=== PATIENT | female | born 1980 | race Caucasian/White ===

== ENCOUNTER 2021-04-28 12:23 | Observation (INO) | payer OTHER, BC ==
[~2021-04-28] VITALS: Ht 165.1 cm; Wt 83.0 kg
--- NOTE | 2021-04-28 12:28 | NUR ---
PATIENT TO ROOM VIA EMS AND PATIENT IS REFUSING C-OLLAR AT THIS TIME. MD NOTIFIED OF PATIENT STATUS
[2021-04-28 13:08] LABS: URINE BILIRUBIN - DIPSTICK NEGATIVE (NEGATIVE); URINE BLOOD DIPSTICK TRACE-INTACT (NEGATIVE); URINE CLARITY CLEAR; URINE COLOR YELLOW; URINE GLUCOSE - DIPSTICK NEGATIVE (NEGATIVE); URINE KETONE NEGATIVE (NEGATIVE); URINE LEUK ESTERASE NEGATIVE (Negative); URINE NITRITE - DIPSTICK NEGATIVE (Negative); URINE PH 5.5 (4.5-8.0); URINE PROTEIN - DIPSTICK NEGATIVE (NEG-TRACE); URINE SPECIFIC GRAVITY >=1.030; URINE UROBILINOGEN - DIPSTICK 0.2 E.U./dL (0.2)
--- NOTE | 2021-04-28 13:30 | NUR ---
PT COMPLAINING OF HEADACHE AND BEING TIRED, RESTING WHILE AWAITING RESULTS FROM CT
[2021-04-28 13:37] LABS: HEMATOCRIT 37.6 % (37.0-47.0); HEMOGLOBIN 13.5 g/dl (12.0-16.0); IMMATURE GRANULOCYTES 0.1 % (0.0-5.0); MEAN CELL VOLUME 88.9 fL CALC (80.0-100.0); MEAN CORPUSCULAR HGB 31.9 pG CALC (26.0-32.0); MEAN CORPUSCULAR HGB CONC 35.9 g/dL CAL (32.0-36.0); NEUT# 4.41 thou/uL (2.00-7.15); RED BLOOD COUNT 4.23 mill/uL (4.20-5.60); RED CELL DISTRI WIDTH 11.7 % (11.5-15.5)
[2021-04-28 13:44] LABS: ALBUMIN 4.1 g/dL (3.2-5.0); ALKALINE PHOSPHATASE 90 u/l (38-126); ANION GAP 15 (6-22 (CALC)); BILIRUBIN, TOTAL 0.6 mg/dL (0.0-1.4); BUN 16 mg/dL (7-17); BUN/CREATININE RATIO 24 (12-20 (CALC)); CARBON DIOXIDE 24 mmol/l (22-30); CHLORIDE 104 mmol/l (95-108); CREATININE 0.7 mg/dL (0.5-1.0); GFR > 60 ML/MIN (>=60 (CALC)); GFR FOR AFR.AMER. > 60 ML/MIN (>=60 (CALC)); POTASSIUM 4.6 mmol/l (3.5-5.1); SGOT/AST 40 u/l (14-36); SODIUM 138 mmol/l (137-146); TOTAL PROTEIN 7.4 g/dL (6.3-8.2)
--- NOTE | 2021-04-28 15:00 | NUR ---
PT AOX3, RESTING IN BED
--- NOTE | 2021-04-28 16:45 | NUR ---
PT AOX3, NEURO INTACT, VSS, RESTING
--- NOTE | 2021-04-28 17:45 | NUR ---
PT AOX3, NO COMPLAINTS AT THIS TIME
[2021-04-28 19:50] VITALS: BP 116/77
--- NOTE | 2021-04-28 19:50 | NUR ---
PT ARRIVED TO MED SURG VIA STRETCHER ACCOMPANIED BY ED NURSE. PT APPEARS TO BE IN STABLE CONDITION. SHE IMMEDIATELY ASKED FOR SOMETHING TO EAT/PROVIDED. V/S ASSESSED TO BE STABLE.
--- NOTE | 2021-04-28 21:52 | NUR ---
PT MEDICATED FOR NAUSEA AND PAIN AT THIS TIME. IVF RUNNING TO EMS SITE TO RAC/SITE APPEARS HEALTHY AND PATENT. PT C/O BEING COLD/EXTRA BLANKET PROVIDED. NEURO'S APPEAR INTACT AT THIS TIME. LOCX4 AND RESPONDS APPROPRIATELY. NO S/O SEDATION. PT C/O EAR PAIN 4/10 ON PAIN SCALE. SHE REPORTS THAT THE ED PHYSICIAN LOOKED IN HER R.EAR ORIGINALLY WHILE IN THE ED AND REPORTED TO HER THAT THE EAR DRUM APPEARS OKAY, BUT IT LOOKS SCRATCHED ON THE INSIDE OF HER EAR CANAL AND THAT IT HAD A SMALL AMOUNT OF BLOOD COMING FROM IT. I CHECKED POSSIBLE HERE, IT DOES APPEAR TO HAVE A SMALL AMOUNT OF DRIED BLOOD IN HER EAR CANAL. I ADVISED HER TO NOTIFY ME IF IT WORSENS. DISCUSSED MEDICATIONS AVAILABLE PRIOR TO MEDICATING AND SHE STATED SHE WANTED TO TRY THE PO MEDICATION FOR PAIN FIRST SINCE IT WAS HER EAR HURTING AT A LEVEL OF 4 ONLY. DENIES ANY OTHER COMFORT NEEDS AT THIS TIME. CALL LIGHT IS AT SIDE AND I ENCOURAGED HER TO CALL NEEDS ARISE.
--- NOTE | 2021-04-29 00:10 | NUR ---
LAB IN TO DRAW. PT AMBULATED TO RESTROOM AND BACK TO BED ASSISTED BY NAIMA.
--- NOTE | 2021-04-29 03:56 | NUR ---
PT AWAKE, STATES SHE HAS BEEN HAVING DIFFICULTY SLEEPING, SHE WILL DOZE OFF AND THEN WAKE UP AGAIN. MEDICATED FOR PAIN 4/10 ON PAIN SCALE "MOSTLY IN R.EAR" SHE REPORTED FEELING SORE ON HER "STOMACH" I VISUALIZED SURFACE SCRAPES ACROSS HER ABD, BUT NO NEW S/O BLEEDING/HEM. PT LOCX4/NEURO'S APPEAR INTACT. COOL PACK PROVIDED FOR EAR COMFORT/WARM PACK NOT AVAILABLE AT THIS TIME TO PROVIDE. LIP BALM ALSO PROVIDED FOR "DRY MOUTH" AND WATER PITCHER REFILLED, DENIES ANY OTHER DRINK OR SNACK.
[2021-04-29 04:00] VITALS: BP 108/66
[2021-04-29 06:25] LABS: CHOLESTEROL HDL RATIO 3.1 (<4.4 (CALC)); MAGNESIUM 1.6 mg/dL (1.6-2.3)
[2021-04-29 07:55] VITALS: BP 112/64
--- NOTE | 2021-04-29 07:55 | NUR ---
ASSESSMENT IS COMPLETED: IV SITE IS FREE FROM REDNESS OR EDEMA. HR IS REG,PULSES ARE STRONG X4, ABD IS SOFT WITH ACTIVE BS. BREATH SOUNDS ARE CLEAR BILATERALLY. SCRATCHES ON HER FACE IS CDI. CONTINUE TO OBSERVE AND MONITOR.
--- NOTE | 2021-04-29 10:00 | NUR ---
PT TRANSPORTED TO HAVE A CT SCAN COMPLETED: RETURNED AT 1030 VIA WC WITH STAFF. TOLERATED WELL.
[2021-04-29 10:30] VITALS: BP 119/73
[2021-04-29] MEDS ORDERED: TRAMADOL HCL50 MG PO (10:39)
--- NOTE | 2021-04-29 12:00 | NUR ---
PT IS RELAXING IN BED MEDICATION WAS GIVEN FOR NAUSEA AND PAIN. INSTRUCTED PT TO RELAX AND WILL DISCHARGE THIS AFTERNOON . VERBALIZED UNDERSTANDING.
--- NOTE | 2021-04-29 14:03 | NUR ---
IV SITE DISCONTINUED CATHETER INTACT. NO REDNESS OR EDEMA. TELE MONITOR IN PLACE. WAS TAKEN OFF. DISCHARGE INSTRUCTIONS GIVEN AND FAMILY IN THE ROOM.
--- NOTE | 2021-04-29 14:19 | NUR ---
Discharge instructions given. Patient verbalizes understanding of same. Discharged in stable condition via Wheelchair to Home with family. All belongings sent with pt.
== END 2021-04-29 14:08 | disposition home or self-care (01) | DRG 90 ==
LOC: ED 12:23 → MS2 16:31 → ED-I 16:41 → ED 16:41 → MS2 21:00
PROVIDERS: Emergency Medicine; ADMIT Internal Medicine; ATTEND Internal Medicine
DX: S06.0X1A Concussion with loss of consciousness of 30 minutes or less, initial encounter (principal); S00.411A Abrasion of right ear, initial encounter; V86.55XA Driver of 3- or 4- wheeled all-terrain vehicle (ATV) injured in nontraffic accident, initial encounter; Y93.I9 Activity, other involving external motion; Y92.833 Campsite as the place of occurrence of the external cause; Z20.822 Contact with and (suspected) exposure to COVID-19
CPT/HCPCS: G0378; Q9967